=== PATIENT | male | born 1950 | race Two or more races ===

== ENCOUNTER 2023-11-04 00:58 | Emergency (ER) | payer OTHER ==
[~2023-11-04] VITALS: Ht 147.3 cm; Wt 70.4 kg
[2023-11-04 01:30] VITALS: PULSE 80; RESP 14; O2SAT 96
[2023-11-04 02:09] LABS: Basophils # (auto) 0 10 ^3/uL (0-0.2); Basophils % (auto) 0.3 % (0.0-2.0); Eosinophils # (auto) 0 10 ^3/uL (0-0.8); Eosinophils % (auto) 0.5 % (0.0-7.0); Hematocrit 47.4 % (41.0-53.0); Hemoglobin 16.6 g/dL (13.5-17.5); Lymphocytes % (auto) 12.6 % (10.0-50.0); Mean Corpuscular Hemoglobin 30.5 pg (28.0-32.0); Mean Corpuscular Volume 87.3 fL (80.0-100.0); Monocytes # (auto) 0.8 10 ^3/uL (0-1.3); Monocytes % (auto) 10.2 % (0.0-12.0); Neutrophils # (auto) 5.9 10 ^3/uL (1.6-8.6); Neutrophils % (auto) 76.4 % (37.0-80.0); Nucleated Red Blood Cells % 0.1 %; Red Blood Cells 5.44 10^6/uL (4.5-5.90); Red Cell Distribution Width 12.5 % (11.8-14.3); White Blood Cell 7.7 10^3/uL (4.4-10.8)
[2023-11-04 02:24] LABS: Alanine Aminotransferase 35 U/L (7-40); Albumin 4.1 g/dL (3.2-4.8); Alkaline Phosphatase 105 U/L (46-116); Anion Gap 9 (5-15); Aspartate Aminotransferase 26 U/L (13-40); BUN/Creatinine Ratio 11.3 (10.0-20.0); Bilirubin, Total 0.9 mg/dL (0.2-1.0); Blood Urea Nitrogen 11 mg/dL (9-23); Calcium 8.5 mg/dL (8.7-10.4); Carbon Dioxide 22 mmol/L (20-30); Chloride 107 mmol/L (98-107); Glucose 188 mg/dL (74-106); Lipase 36 U/L (12-53); Potassium 3.9 mmol/L (3.5-5.1); Sodium 138 mmol/L (136-145)
[2023-11-04 06:00] VITALS: BP 150/64; PULSE 92; RESP 18; O2SAT 96
== END 2023-11-04 07:23 | disposition home or self-care (01) ==
LOC: EDBD 00:58 → ER 00:58
DX: K59.00 Constipation, unspecified (principal); N20.0 Calculus of kidney; R07.89 Other chest pain
CPT/HCPCS: 36415; 74176; 80053; 83690; 85025; 93005